=== PATIENT | female | born 1980 | race Caucasian/White ===

== ENCOUNTER 2017-11-21 13:23 | Day surgery (SDC) | payer OTHER ==
[2017-11-18 15:54] VITALS: BMI 27.1
[2017-11-21] MEDS ORDERED: BUPIVACAINE HCL 0.25% 125 MG/50 ML VIAL ONE (15:44)
[2017-11-21] MEDS ORDERED: MIDAZOLAM HCL 2 MG/2 ML SINGLE DOSE VIAL ONE (16:00)
[2017-11-21] MEDS ORDERED: DEXAMETHASONE SOD PHOSPHATE 4 MG/1 ML VIAL ONE ×2 (16:00→16:44)
[2017-11-21] MEDS ORDERED: ONDANSETRON 4 MG/2 ML VIAL ONE ×2 (16:00→16:44)
[2017-11-21] MEDS ORDERED: PROPOFOL 20 ML ONE (16:15)
[2017-11-21] MEDS ORDERED: ceFAZolin SODIUM 1 GM VIAL ONE (16:20)
[2017-11-21] MEDS ORDERED: ONDANSETRON 4 MG/2 ML VIAL IVPUSH PRN (16:59)
[2017-11-21] MEDS ORDERED: oxyCODONE HCL 5 MG TABLET PO PRN ×2 (16:59)
--- NOTE | 2017-11-21 17:01 | OP ---
Operative Note - Note: Operative Date: 11/21/17 Pre-Operative Diagnosis: L knee mmt Operation: left knee arthroscopy with partial menisectomy Post-Operative Diagnosis: Same as Pre-op Surgeon: Byron Vela Anesthesiologist/PAPER CLEANER: Davin Lyons Anesthesia: General Operative Report Dictated: Yes
[2017-11-21] MEDS ORDERED: LACTATED RINGERS SOLUTION 1,000 ML IV SCH (17:15)
[2017-11-21 17:59] VITALS: TEMP 98.1
[2017-11-21 18:54] VITALS: BP 122/73; PULSE 81
--- NOTE | 2017-11-21 18:55 | OP ---
DATE OF OPERATION: 11/21/2017 PREOPERATIVE DIAGNOSIS: Right knee medial meniscal tear. POSTOPERATIVE DIAGNOSIS: Right knee medial meniscal tear. PROCEDURE: Right knee arthroscopy with partial medial meniscectomy. SURGEON: Byron Trejo MD ANESTHESIA: General. POSTOPERATIVE CONDITION: Stable. COMPLICATIONS: None. INDICATIONS: This is a pleasant 37-year-old female who has been suffering from medial knee pain. MRI demonstrated meniscal tear. Treatment options including nonoperative versus operative measures were reviewed. Operative risks were reviewed in detail including bleeding, infection, neurovascular injury, need for further surgery, postoperative pain and stiffness, progressive osteoarthritis. We discussed medical risks such as heart attack, stroke, DVT, PE, and . I addressed all the patient's questions. She voiced understanding and elected to proceed. DESCRIPTION OF PROCEDURE: The patient was brought to the operating room where general anesthesia was administered. The right lower extremity was then prepped and draped in the usual sterile fashion. A preoperative dose of antibiotics was given, and the usual timeout procedure was performed. At this point, the portal sites were marked out and injected subcutaneously with 0.25% Marcaine. An 11 blade was now used to establish a lateral portal. The arthroscope was passed to the knee joint. Examination of the patellofemoral joint demonstrated no lesions. The patella did have lateralization. I passed the arthroscope down into the notch demonstrated intact ACL and PCL. A medial portal was now established with spinal needle localization. Examination of the medial compartment demonstrated no significant articular lesions. There was a large fragment displaced into the anterior medial gutter of the medial meniscus. 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 Utilizing the meniscal bitters as well as the shaver, the medial meniscus was debrided down to a stable base. The arthroscope was now passed into the lateral compartment. Here, no articular or meniscal lesions were seen. The arthroscope was now passed back into the patellofemoral joint. The excess fluid was withdrawn from the joint. The portals were sutured using 3-0 nylon. Sterile dressings were placed. Patient was extubated and transferred to recovery room in stable condition. BYRON TREJO M.D. [id number]
== END 2017-11-21 18:45 | disposition home or self-care (01) ==
LOC: FASU 13:23
PROVIDERS: ATTEND Orthopaedic Surgery Sports Medicine
PROC: 0SBC4ZZ Excision of Right Knee Joint, Percutaneous Endoscopic Approach (ICD-10-PCS; principal; 2017-11-21 16:28)
DX: S83.241A Other tear of medial meniscus, current injury, right knee, initial encounter (principal)
CPT/HCPCS: 84703; 94760